=== PATIENT | male | born 1960 | race Caucasian/White ===

== ENCOUNTER 2016-11-24 21:01 | Emergency (ER) | payer OTHER ==
[2016-11-24] MEDS ORDERED: HYDROcodone/ACETAMIN 5-325 MG* 1 TAB PO ONE (23:30)
--- NOTE | 2016-11-24 23:46 | ED ---
Lower Extremity - HPI Summary HPI Summary: Pt here w/ Rt calf and knee pain and swelling x past few days. Injured Rt knee last week when he pivoted on a planted foot - no aggressive injury per pt, however did have acute pain and swelling to follow throughout the day with activities (ie. yardwork, etc), especially behind his knee. Pain w/ full flexion d/t stiffness/fullness. Saw his PCP a few days later who reported he may have an ACL sprain - referred to ortho this coming Saturday. Pt has been fully weight bearing - only times he has pain is when his foot bumps into things - pain radiates into knee. Denies instability but reports difficulty on stairs - goes slowly. Denies numbness, tingling, weakness. He's not been elevating his leg throughout the day but rather sitting at work and sitting in car driving from job to job. 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 No foot swelling. Denies fever, chills, N/V/D, chest pain, SOB, cough. Has a few small scabs over tibial region which he reports are bug bites. No h/o cellulitis, coagulopathy. H/o HTN (takes lisinopril), hyperlipidemia (takes statin). No cardiac episodes but has strong fam h/o CVD - father. - History of Current Complaint Chief Complaint: EDExtremityLower Stated Complaint: RT KNEE SWOLLEN Time Seen by Provider: 11/24/16 22:37 Hx Obtained From: Patient, Family/Overnight Caregiver - Pain Intensity: 6 - Allergies/Home Medications Allergies/Adverse Reactions: Allergies Allergy/AdvReac Type Severity Reaction Status Date / Time No Known Allergies Allergy Verified 12/03/11 18:18 PMH/Surg Hx/FS Hx/Imm Hx Previously Healthy: Yes Endocrine/Hematology History: Denies: Hx Anticoagulant Therapy, Hx Blood Disorders, Hx Diabetes, Hx Thyroid Disease, Hx Unexplained Bleeding, Hx Coagulopothy Cardiovascular History: Reports: Hx Hypercholesterolemia - statin, Hx Hypertension - lisinopril Denies: Hx Congestive Heart Failure, Hx Coronary Artery Disease, Hx Deep Vein Thrombosis, Hx Pacemaker/ICD, Hx Peripheral Vascular Disease Respiratory History: Denies: Hx Asthma, Hx Chronic Obstructive Pulmonary Disease (COPD) History: Denies: Hx Renal Disease Musculoskeletal History: Reports: Other Musculoskeletal History - Rt knee injury 10/2016 Denies: Hx Arthritis Neurological History: Denies: Hx Dementia, Hx Seizures Psychiatric History: Denies: Hx Substance Abuse Infectious Disease History: No Infectious Disease History: Denies: Hx Hepatitis, Hx Human Immunodeficiency Virus (HIV), Traveled Outside the [place] in Last 30 Days - Family History Known Family History: Positive: Cardiac Disease, Diabetes - brother type 2; son type 1 - Social History Occupation: Employed Full-time - counseling for [employer] Lives: With Family Alcohol Use: None Hx Substance Use: No Substance Use Type: Reports: None Hx Tobacco Use: Yes Smoking Status (MU): Former Smoker Review of Systems Constitutional: Negative Negative: Fever, Chills, Fatigue Cardiovascular: Negative Negative: Palpitations, Chest Pain Respiratory: Negative Negative: Shortness Of Breath, Cough Gastrointestinal: Negative Negative: Abdominal Pain, Vomiting, Diarrhea, Nausea Positive: no symptoms reported Musculoskeletal: Other - see hpi Skin: Other - SEE hpi Neurological: Negative Negative: Headache, Weakness, Paresthesia, Numbness, Syncope, Slurred Speech Psychological: Normal All Other Systems Reviewed And Are Negative: Yes Physical Exam Triage Information Reviewed: Yes Vital Signs On Initial Exam: Initial Vitals Temp Pulse Resp BP Pulse Ox 97.2 F 81 20 148/107 96 11/24/16 21:10 11/24/16 21:10 11/24/16 21:10 11/24/16 21:10 11/24/16 21:10 Vital Signs Reviewed: Yes Appearance: Positive: Well-Appearing, No Pain Distress, Well-Nourished Skin: Positive: Warm, Dry - Rt tibial region erythematous, feverish to touch w/ + 1 pitting edema over anterior region; ankle and foot are w/ normal skin color and temp - no edema Head/Face: Positive: Normal Head/Face Inspection Eyes: Positive: Normal, EOMI, Conjunctiva Clear ENT: Positive: Hearing grossly normal, Pharynx normal - mucosa moist Respiratory/Lung Sounds: Positive: Clear to Auscultation, Breath Sounds Present Cardiovascular: Positive: Normal, RRR, Pulses are Symmetrical in both Upper and Lower Extremities, Leg Edema Right - as above Abdomen Description: Positive: Nontender, Soft Musculoskeletal: Positive: Strength/ROM Intact - EXCEPT Full flexion of Rt knee - limited d/t pain/stiffness from edema, Pain @ - Rt popliteal region TTP Neurological: Positive: Normal, Sensory/Motor Intact, Alert, Oriented to Person Place, Time, CN Intact II-III Psychiatric: Positive: Normal - Salome Coma Scale Coma Scale Total: 15 Diagnostics - Vital Signs Vital Signs Temp Pulse Resp BP Pulse Ox 11/24/16 21:10 97.2 F 81 20 148/107 96 - Laboratory Result Diagrams: 11/24/16 23:37 11/24/16 23:37 Lab Statement: Any lab studies that have been ordered have been reviewed, and results considered in the medical decision making process. Lower Extremity Course/Dx - Course Course Of Treatment: Pt presents w/ progressively worsening Rt knee pain/ swelling since injury last week. Has not been resting, icing or elevating and sits many hours at a chair throughout the day for work as well as driving. U/S neg for DVT but tech reports vessels are easily compressed d/t swelling within tissue. No Calvert's cyst reported. Does not appear to have compartment syndrome as he does not have pain with passive ROM nor shiny, red skin, and he has a strong pulse and senasation as well as active movement in Rt foot and ankle. Labs are negative for infection. Discussed option to start anbx however he declined. Suspect 2ndry edema from poor venous return with knee swelling since injury. No anterior knee swelling and does not appear to be septic joint. Discussion with pt about aggressive RICE, non-weight bearing w/ initiation of ASA 325mg daily until seen by orthopedics Saturday. He will call them Saturday to see if he may be seen sooner. Also reviewed danger s/sx of when to return to ED. - Diagnoses Provider Diagnoses: Right knee sprain, Leg edema, right Discharge - Discharge Plan Condition: Stable Disposition: HOME Patient Education Materials: Knee Sprain (ED), Crutch Instructions (ED), Leg Edema (ED) Forms: *Work Release Referrals: Dejuan Estes MD [Medical Doctor] - Additional Instructions: Rest, ice, elevate - place legs up on wall for 20 minutes at a time with ankle pumps to aid in blood flow return Avoid weight bearing to reduce risk of further injury causing swelling in knee and lower leg Start 325mg Aspirin daily with food Call Dr. Issa Saturday to update symptoms *If worse, or you develop coolness/numbness/tingling in foot/leg, fever, chest pain, shortness of breath, cough, fatigue, return to ED
[2016-11-24 23:51] LABS: Hematocrit 39 % (42-52); Hemoglobin 13.7 g/dl (14.0-18.0); Mean Corpuscular HGB Conc 35 g/dl (31-36); Mean Corpuscular Hemoglobin 32 pg (27-31); Mean Corpuscular Volume 91 fL (80-94); Mean Platelet Volume 8 um3 (7.4-10.4); Red Blood Count 4.25 10^6/ul (4.0-5.4); Red Cell Distribution Width 13 % (10.5-15); White Blood Count 9.1 10^3/ul (3.5-10.8)
[2016-11-25 00:08] LABS: Albumin 4.2 g/dL (3.2-5.2); BUN/Creatinine Ratio 14.8 (8-20); C Reactive Protein 12.83 mg/L (< 5.00); EGFR African American 127.7 (>60); EGFR Non-African American 99.3 (>60); Globulin 2.9 g/dL (2-4); Potassium 3.8 mmol/L (3.5-5.0); Total Bilirubin 0.4 mg/dL (0.2-1.0); Total Protein 7.1 g/dL (6.4-8.9)
[2016-11-25] MEDS ORDERED: HYDROcodone/ACETAMIN 5-325 MG* 1 TAB PO ONE (02:05)
[2016-11-25 02:23] VITALS: BP 140/98
--- NOTE | 2016-11-25 07:46 | RAD ---
HISTORY: Right knee pain, calf pain and swelling COMPARISONS: None relevant TECHNIQUE: Multiple transverse and longitudinal ultrasound images were obtained of the right lower extremity from the level of the common femoral vein inferiorly through to the infrapopliteal veins using grayscale, color Doppler, and spectral Doppler imaging with and without compression and with augmentation. Comparison images were obtained of the contralateral common femoral vein. FINDINGS: VEINS: The venous system of the right lower extremity is compressible throughout its course, with normal flow on color Doppler imaging and normal response to augmentation on spectral Doppler imaging. SOFT TISSUES: Unremarkable. OTHER FINDINGS: None. IMPRESSION: NO RIGHT LOWER EXTREMITY DEEP VEIN THROMBOSIS
--- NOTE | 2016-11-25 08:00 | RAD ---
HISTORY: Right knee pain, injury COMPARISONS: None VIEWS: 2, Frontal and lateral views of the right knee FINDINGS: BONE DENSITY: Normal. BONES: There is no displaced fracture. There is a small superior patellar enthesophyte. JOINTS: There is mild medial and lateral compartment osteoarthritis. There is no suprapatellar joint effusion or lipohemarthrosis. ALIGNMENT: There is no dislocation. SOFT TISSUES: Unremarkable. OTHER FINDINGS: None. IMPRESSION: MILD OSTEOARTHRITIS. NO ACUTE OSSEOUS INJURY. IF SYMPTOMS PERSIST, RECOMMEND REPEAT IMAGING.
== END 2016-11-25 01:40 | disposition home or self-care (01) ==
LOC: ED 21:01
DX: S83.91XA Sprain of unspecified site of right knee, initial encounter (principal); M25.561 Pain in right knee; Y92.9 Unspecified place or not applicable; Y93.9 Activity, unspecified; X58.XXXA Exposure to other specified factors, initial encounter; Z87.891 Personal history of nicotine dependence
CPT/HCPCS: 36415; 80053; 83605; 85025; 85610; 85730; 86140; 99283

== ENCOUNTER 2018-11-03 11:31 | Emergency (ER) | payer OTHER ==
[2018-11-03 12:01] VITALS: BP 130/90
--- NOTE | 2018-11-03 12:06 | UC ---
Ear Complaint HPI - HPI Summary HPI Summary: Patient is a 58yo male presenting with intermittent left ear pain x4 days. He says it feels "blocked" and that there is sharp pain at times. Notes slight loss of hearing. Denies drainage from ear and pain in right ear. Does note mild headache yesterday. Denies fever and chills. Denies sore throat, cough, nasal discharge, itchy/watery eyes. Has not tried anything to alleviate pain. Patient does admit to using ear buds often. - History of Current Complaint Chief Complaint: UCEar Stated Complaint: EAR PAIN Time Seen by Provider: 11/03/18 12:05 Hx Obtained From: Patient Onset/Duration: Lasting Days Severity Initially: Moderate Severity Currently: None Pain Intensity: 6 Pain Scale Used: 0-10 Numeric Aggravating Factors: Other - coughing - Allergies/Home Medications Allergies/Adverse Reactions: Allergies Allergy/AdvReac Type Severity Reaction Status Date / Time acetaminophen [From Percocet] Allergy Itching Verified 11/03/18 12:02 oxycodone [From Percocet] Allergy Itching Verified 11/03/18 12:02 PMH/Surg Hx/FS Hx/Imm Hx Other History Of: Negative For: Anticoagulant Therapy - Surgical History Surgical History: Yes Surgery Procedure, Year, and Place: RIGHT KNEE 2004-ORTHROSCOPIC - Family History Known Family History: Positive: Cardiac Disease, Diabetes - brother type 2; son type 1 - Social History Alcohol Use: None Substance Use Type: None Smoking Status (MU): Former Smoker Review of Systems All Other Systems Reviewed And Are Negative: No Constitutional: Negative: Fever, Chills Eyes: Negative: Drainage ENT: Positive: Ear Ache. Negative: Sore Throat, Nasal Discharge, Sinus Congestion Gastrointestinal: Positive: Negative Genitourinary: Positive: Negative Neurological: Positive: Headache Physical Exam Triage Information Reviewed: Yes Appearance: Well-Appearing, No Pain Distress, Well-Nourished Vital Signs: Initial Vital Signs Temp 97.5 F 11/03/18 11:59 Pulse 83 11/03/18 11:59 Resp 17 11/03/18 11:59 BP 130/90 11/03/18 11:59 Pulse Ox 98 11/03/18 11:59 Vital Signs Reviewed: Yes Eyes: Positive: Conjunctiva Clear ENT Exam: Other - Right TM normal. Left TM unable to be visualized due to swelling of external canal. Left ear canal also with mild erythema and tender to touch with otoscope. No drainage noted. ENT: Positive: Pharynx normal. Negative: Nasal congestion, Nasal drainage, Sinus tenderness Neck: Positive: No Lymphadenopathy Respiratory Exam: Normal Cardiovascular Exam: Normal Ear Complaint Course/Dx - Course Course Of Treatment: Patient was given instructions to treat otitis externa with ofloxacin drops. He was instructed to use ibuprofen as directed for pain and to return if symptoms did not improve or if they worsen. Patient also told not to place objects in ears, including ear buds and q tips. Patient voiced his understanding and agreed to treatment. - Differential Dx/Diagnosis Provider Diagnosis: Otitis externa Discharge ED - Sign-Out/Discharge Documenting (check all that apply): Patient Departure All imaging exams completed and their final reports reviewed: No Studies - Discharge Plan Condition: Stable Disposition: HOME Prescriptions: Ofloxacin 0.3% (Ear Drop)* [Floxin 0.3% OTIC.GIORGIO (Ear Drop)] 5 drop LEFT EAR BID #1 btl Patient Education Materials: Otitis Externa (ED) Referrals: Wilder Barr MD [Primary Care Provider] - Additional Instructions: Place 5 drops in left ear twice daily. Avoid placing objects in ears, including ear buds and Q tips. Return if symptoms do not improve or worsen. - Billing Disposition and Condition Condition: STABLE Disposition: Home - Attestation Statements Provider Attestation: Per institutional requirements, I have reviewed the chart, however, I was not consulted specifically or made aware of this patient by the midlevel provider. I did not personally evaluate, interact with , or disposition this patient.
== END 2018-11-03 12:36 | disposition home or self-care (01) ==
LOC: UCEAST 11:31
DX: H60.92 Unspecified otitis externa, left ear (principal); Z88.5 Allergy status to narcotic agent; Z87.891 Personal history of nicotine dependence
CPT/HCPCS: 99212; G0463

== ENCOUNTER 2021-03-07 05:45 | Observation (INO) ==
[2021-03-07] MEDS ORDERED: Buffered Lidocaine 1% SYRIN 1 ml INTRADERM ONE (06:00)
[2021-03-07] MEDS ORDERED: Lactated Ringers 1000 ml BAG 1,000 ML IV SCH (06:00)
[2021-03-07] MEDS ORDERED: ceFAZolin 2 GM in NS PREMIX 2 GM/100 ML BAG IVPB ONE (06:18)
[2021-03-07] MEDS ORDERED: Midazolam 5 mg/5 ml VIAL 1 mg/ml 5 ml VIAL (5 mg) ONE (06:50)
[2021-03-07] MEDS ORDERED: fentaNYL 100 mcg/2 ml 50 MCG/ML VIAL ONE (06:50)
[2021-03-07] MEDS ORDERED: Rocuronium 50 mg VIAL 10 mg/ml 5 ml VIAL (50 mg) ONE (06:50)
[2021-03-07] MEDS ORDERED: Bupivacaine 0.5% SDV PF 30ML VIAL ONE (06:51)
[2021-03-07] MEDS ORDERED: Lidocaine 2% PF 5 ML VIAL ONE (06:51)
[2021-03-07] MEDS ORDERED: Propofol 10 MG/ML 20 ML BTL ONE ×2 (06:51→09:24)
[2021-03-07] MEDS ORDERED: Bupivacaine 0.25% SDV 30 ML ONE ×2 (07:02→07:43)
[2021-03-07] MEDS ORDERED: ROPIVACAINE 5 MG/ML 30 ML BTL (0.5%) ONE (07:08)
[2021-03-07] MEDS ORDERED: Lidocaine 1% MPF 5 ML VIAL ONE (07:08)
[2021-03-07] MEDS ORDERED: BUPIVACAINE **LIPOSOME/PF 13.3 MG/ML (266MG/ 20ML) VIAL (RESTRICTED) INFIL ONE (08:00)
[2021-03-07] MEDS ORDERED: DiMENhydriNATE IV 50 mg/ml 1 ml VIAL IV PUSH PRN (08:31)
[2021-03-07] MEDS ORDERED: Naloxone 0.4 mg VIAL 0.4 mg/ml 1 ml VIAL IV PRN (08:31)
[2021-03-07] MEDS ORDERED: fentaNYL 100 mcg/2 ml 50 MCG/ML VIAL IV PRN (08:31)
[2021-03-07] MEDS ORDERED: HYDROmorphone 1 MG/1 ML SYRINGE IV PRN (08:31)
[2021-03-07] MEDS ORDERED: Acetaminophen IV 1 GM/100ML 100 ML IV PRN (08:31)
[2021-03-07] MEDS ORDERED: Ondansetron 4 mg VIAL 2 MG/ML 2 ml VIAL IV PRN ×2 (08:31→10:20)
[2021-03-07] MEDS ORDERED: Acetaminophen IV 1 GM/100ML 100 ML IV ONE (09:28)
[2021-03-07] MEDS ORDERED: Ketamine HCL 50 mg/ml 10 ml VIAL (500 MG) ONE (09:35)
[2021-03-07] MEDS ORDERED: Phenylephrine 40 mcg/mL 10mL (400mcg) SYRINGE ONE (09:54)
[2021-03-07] MEDS ORDERED: Lactulose 30 ml UDC PO PRN (10:20)
[2021-03-07] MEDS ORDERED: Magnesium Hydroxide LIQ 30 ML UDC PO PRN (10:20)
[2021-03-07] MEDS ORDERED: diPHENhydraMINE IV 50 MG/ML 1 ml VIAL (BENADRYL) IV PRN (10:20)
[2021-03-07] MEDS ORDERED: diPHENhydraMINE 25 mg TAB PO PRN (10:20)
[2021-03-07] MEDS ORDERED: Ondansetron ODT 4 mg TAB 4 MG TAB PO PRN (10:20)
[2021-03-07] MEDS: Lactated Ringers 1000 ml BAG 1,000 ML IV SCH ×2 (13:14→21:38)
[2021-03-07] MEDS ORDERED: Albuterol HFA INHALER 8 gm MDI INH PRN (13:35)
[2021-03-07] MEDS: Morphine 2 MG/ML SYRINGE IV PRN ×2 (13:35→20:09)
[2021-03-07] MEDS ORDERED: Acetaminophen IV 1 GM/100ML VI 100 ML IV PRN (15:52)
[2021-03-07] MEDS ORDERED: LACTATED RINGERS 500 ML BAG IV ONE ×2 (16:00→16:30)
[2021-03-07 16:10] LABS: Hematocrit 37 % (42-52); Hemoglobin 13.3 g/dL (14.0-18.0)
[2021-03-07] MEDS: ceFAZolin 1 GM ADVAN 1 GM in NS 0.9% 50 ML 50 ML IVPB SCH (16:40)
[2021-03-07] MEDS: Magnesium Hydroxide LIQ 30 ML UDC PO SCH (20:11)
[2021-03-07] MEDS: oxyCODONE SR 10 mg TAB PO SCH (20:25)
[2021-03-07] MEDS ORDERED: METHYLPHENIDATE HCL 40 MG PO SCH (21:00)
[2021-03-08] MEDS: ceFAZolin 1 GM ADVAN 1 GM in NS 0.9% 50 ML 50 ML IVPB SCH ×2 (00:09→07:18)
[2021-03-08] MEDS: Nicotine GUM 4MG FRUIT FLAVOR PO PRN ×3 (05:59→13:05)
[2021-03-08 06:26] LABS: Hematocrit 35 % (42-52); Hemoglobin 12.4 g/dL (14.0-18.0); Mean Platelet Volume 8.6 fL (7.4-10.4); Platelet Count 176 10^3/uL (150-450)
[2021-03-08 06:41] LABS: Calcium 8.2 mg/dL (8.6-10.3); Potassium 3.5 mmol/L (3.5-5.0)
[2021-03-08] MEDS ORDERED: Nicotine PATCH 21 MG/24 HR PATCH TRANSDERM SCH (09:00)
[2021-03-08] MEDS ORDERED: MAGNESIUM SALICYLATE PO SCH (09:00)
[2021-03-08] MEDS ORDERED: Vitamin THERAPEUTIC TAB PO SCH (09:00)
[2021-03-08] MEDS: Magnesium Hydroxide LIQ 30 ML UDC PO SCH (09:08)
[2021-03-08] MEDS: oxyCODONE SR 10 mg TAB PO SCH (09:09)
[2021-03-08 12:11] VITALS: BP 120/74
== END 2021-03-08 13:47 | disposition home or self-care (01) ==
LOC: SSU 05:45 → OR 05:45
PROVIDERS: ADMIT Orthopaedic Surgery Sports Medicine; ATTEND Orthopaedic Surgery Sports Medicine